=== PATIENT | male | born 1995 | race Asian ===

== ENCOUNTER 2019-04-15 18:44 | Inpatient (IN) | payer MEDICAID ==
[~2019-04-15] VITALS: Ht 170.2 cm; Wt 78.9 kg
--- NOTE | 2019-04-15 18:53 | NUR ---
[id number], C/O HEAD PAIN S/P TACKLED AND LANDED ON HIS NECK WHILE PLAYING SOCCER, KO FOR 15-20 SECS, TO ER BED 12, HOOKED TO MONITOR, VSS, CHANGED TO VINH, AWAITING MD PATTERSON.
--- NOTE | 2019-04-15 19:10 | NUR ---
WHEELED OUT VIA RNEY FOR CT SCAN
[2019-04-15] MEDS ORDERED: LEVETIRACETAM (500MG) 1,000 MG in IV NS 0.9% 100 ML IV STA (21:24)
[2019-04-15] MEDS ORDERED: Z GUARD REMEDY 2 OZ OINT TP PRN (21:30)
[2019-04-15] MEDS ORDERED: ACETAMINOPHEN 325 MG TABLET PO PRN (21:30)
[2019-04-15] MEDS ORDERED: MAGNESIUM HYDROXIDE 30 ML UDC PO PRN (21:30)
[2019-04-15] MEDS ORDERED: MAG HYDROX/AL HYDROX/SIMETH 30 ML UDC PO PRN (21:30)
[2019-04-15] MEDS ORDERED: HYDROCODONE/APAP 5/325MG 1 EACH TABLET PO PRN (21:30)
[2019-04-15] MEDS ORDERED: ONDANSETRON HCL/PF 4 MG/2 ML VIAL IVP PRN (21:30)
--- NOTE | 2019-04-15 21:32 | NUR ---
FAMILY BROUGHT FOOD FOR PATIENT, TOLERATING PO WELL.
[2019-04-15 21:51] LABS: BASOPHILS # (AUTO) 0.1 /CMM (0.0-0.2); BASOPHILS % (AUTO) 0.5 % (0.0-2.0); EOSINOPHILS % (AUTO) 0.5 % (0.0-6.0); HEMATOCRIT 45 % (39-51); LYMPHOCYTES # (AUTO) 1.2 /CMM (0.8-4.8); LYMPHOCYTES % (AUTO) 9.8 % (20.0-44.0); MEAN CORPUSCULAR HGB CONC 34 g/dl (31.0-36.0); MEAN CORPUSCULAR VOLUME 92 fL (80-96); MONOCYTES # (AUTO) 0.8 /CMM (0.1-1.30); MONOCYTES % (AUTO) 6.6 % (2.0-12.0); NEUTROPHILS # (AUTO) 9.8 /CMM (1.8-8.9); NEUTROPHILS % (AUTO) 82.6 % (43.0-81.0); PLATELET COUNT (AUTO) 214 /CMM (150-450); RED BLOOD CELL COUNT(AUTO) 4.86 MIL/uL (4.5-6.0); WHITE BLOOD COUNT (AUTO) 11.9 K/uL (4.3-11.0)
[2019-04-15] MEDS ORDERED: LEVETIRACETAM (500MG) 500 MG/5 ML VIAL IV ONE (21:51)
[2019-04-15 22:01] LABS: CALCIUM, SERUM 9.3 mg/dL (8.5-10.1); CREATININE 1.1 mg/dL (0.6-1.3); POTASSIUM 3.8 mmol/L (3.5-5.1)
--- NOTE | 2019-04-15 22:44 | NUR ---
REPORT GIVEN TO SHELBY OF TELE UNIT
--- NOTE | 2019-04-15 22:46 | NUR ---
DR BALLARD AT BEDSIDE
[2019-04-15 23:52] VITALS: BP 141/78
--- NOTE | 2019-04-15 23:54 | NUR ---
RN NOTE RECEIVED PATIENT FROM ER, AMBULATORY, STEADY GAIT, NO DISTRESS NOTED, NO DIZZINESS NOTED, DX HEMMORHAGIC CONTUSION, ROOM AIR, SPO2 98%, SR ON THE MONITOR, BELONGING'S LIST DONE AND PLACED IN THE CHART, PICTURES TAKEN, WILL CONTINUE TO MONITOR PATIENT
[2019-04-16] VITALS: BP 141/78
[2019-04-16 04:00] VITALS: BP 124/49
--- NOTE | 2019-04-16 07:24 | NUR ---
RN OPENING NOTES RECEIVED PT RESTING IN BED COMFORTABLY, DENIES ANY PAIN OR DISCOMFORT AT THIS TIME. HE IS AOX4, VERBAL AND AMBULATORY. HE IS ON RA, TOLERATING WELL, NO S/SX OF SOB OR RESP DISTRESS. HE HAS A LAC 18G SL, PATENT AND INTACT. HE IS ON A REGULAR DIET. SKIN IS INTACT, R ELBOW WOUND. SAFETY MEASURES HAVE BEEN IMPLEMENTED, CALL LIGHT IS WITHIN REACH, BED IS IN LOWEST AND LOCKED POSITION, SIDE RAILS UP X2, WILL CONTINUE TO MONITOR FOR ANY CHANGES
[2019-04-16 07:45] LABS: BASOPHILS # (AUTO) 0.1 /CMM (0.0-0.2); BASOPHILS % (AUTO) 0.6 % (0.0-2.0); HEMATOCRIT 44 % (39-51); HEMOGLOBIN 14.5 g/dL (13.5-17.5); LYMPHOCYTES # (AUTO) 2.2 /CMM (0.8-4.8); LYMPHOCYTES % (AUTO) 24.4 % (20.0-44.0); MEAN CORPUSCULAR HGB CONC 33 g/dl (31.0-36.0); MEAN CORPUSCULAR VOLUME 93 fL (80-96); MONOCYTES # (AUTO) 0.7 /CMM (0.1-1.30); MONOCYTES % (AUTO) 7.6 % (2.0-12.0); NEUTROPHILS # (AUTO) 5.8 /CMM (1.8-8.9); NEUTROPHILS % (AUTO) 64.4 % (43.0-81.0); PLATELET COUNT (AUTO) 204 /CMM (150-450); RED BLOOD CELL COUNT(AUTO) 4.67 MIL/uL (4.5-6.0)
[2019-04-16 07:50] LABS: CALCIUM, SERUM 8.6 mg/dL (8.5-10.1); CREATININE 1.1 mg/dL (0.6-1.3); MAGNESIUM 2.3 mg/dL (1.8-2.4); PHOSPHORUS 4.3 mg/dL (2.5-4.9); POTASSIUM 3.7 mmol/L (3.5-5.1)
[2019-04-16 08:00] VITALS: BP 122/91
[2019-04-16 12:00] VITALS: BP 117/72
--- NOTE | 2019-04-16 13:05 | NUR ---
SPOKE WITH DR CLAUDIO REGARDING PT DC. WE ARE WAITING FOR THE FINAL OK FROM NEUROLOGIST DR. MULLER. CALLED HIM BUT NO RESPONSE, WILL TRY AGAIN LATER
--- NOTE | 2019-04-16 15:20 | NUR ---
NOTIFIED DR. CLAUDIO ABOUT NOT BEING ABLE TO REACH DR. MULLER FOR FINAL DC OK. WILL TRY TO CONTACT HIM AGAIN
--- NOTE | 2019-04-16 15:27 | NUR ---
SPOKE WITH DR MULLER VIA PHONE. I READ HIM THE RESULTS OF THE REPEAT HEAD CT, PT IS OK TO BE DC'D. PATIENT IS TO TRAVEL WITH AN AIRPLANE IN ABOUT A WEEKS TIME, I ASKED DR MULLER IF IT WAS OK AND HE STATED "IT SHOULD BE FINE" .
[2019-04-16 16:00] VITALS: BP 121/66
--- NOTE | 2019-04-16 16:30 | NUR ---
PT HAS BEEN DISCHARGED. RECEIVED THE OK FROM DR CLAUDIO AND DR MULLER. PT LEFT IN STABLE CONDITION, NO ACUTE CHANGES OCCURRED DURING THE DAY. HE WAS PROVIDED WITH DC INSTRUCTIONS. EXIT CARE WAS UTILIZED AND INFORMATION WAS PROVIDED. IV SITE WAS REMOVED. DRESSING ON R ELBOW WAS CHANGED. PICTURE OF WOUND WAS TAKEN AND PLACED IN CHART. PT LEFT THE UNIT VIA WHEEL CHAIR AND WAS PICKED UP BY HIS UNCLE.
== END 2019-04-16 16:30 | disposition home or self-care (01) | DRG 56 ==
LOC: ER 18:44 → TELE1 22:45 → MEDSG1 04-16 12:00
PROVIDERS: ADMIT Internal Medicine; ATTEND Family Medicine
DX: S06.329A Contusion and laceration of left cerebrum with loss of consciousness of unspecified duration, initial encounter (principal); F07.81 Postconcussional syndrome; D72.829 Elevated white blood cell count, unspecified; S16.1XXA Strain of muscle, fascia and tendon at neck level, initial encounter; R40.2412 Glasgow coma scale score 13-15, at arrival to emergency department; Y93.66 Activity, soccer; Y92.89 Other specified places as the place of occurrence of the external cause
CPT/HCPCS: 36415; 70450-TC; 72125-TC; 80048-TC; 83735-TC; 84100-TC; 85025-TC; 85610-TC; 87081-TC; G0378; J1953; J7030